=== PATIENT | female | born 1985 | race Caucasian/White ===

== ENCOUNTER 2023-10-06 06:28 | Day surgery (SDC) | payer OTHER ==
[~2023-10-06] VITALS: Ht 149.9 cm; Wt 80.4 kg
[~2023-10-06 06:28] MED LIST: BUSP10TA79 PO; OMEP20TA17 PO; PARO20TA3 PO; ceFAZolin SOD 2 GM in IV 1 EA IV ONE
[2023-10-06] MEDS ORDERED: LIDOCAINE 2% 100MG/5ML SDV (FOR ANES.) As Ordered ONE (06:50)
[2023-10-06] MEDS ORDERED: ONDANSETRON 4MG 2ML VIAL As Ordered ONE (06:50)
[2023-10-06] MEDS ORDERED: LR 1,000 ML IV SCH ×2 (06:50→08:20)
[2023-10-06] MEDS ORDERED: propofoL 200 MG/20 ML VIAL As Ordered ONE (06:50)
[2023-10-06] MEDS ORDERED: fentaNYL 100 MCG/2 ML INJECTION As Ordered ONE (06:53)
[2023-10-06] MEDS ORDERED: MIDAZOLAM INJ 2MG/2ML VIAL As Ordered ONE (06:53)
[2023-10-06] MEDS: ceFAZolin SOD 2 GM in IV 1 EA IV ONE (07:30)
[2023-10-06] MEDS ORDERED: ACETAMINOPHEN 1000MG 100ML IV BAG As Ordered ONE (07:43)
[2023-10-06] MEDS: ISOVUE-300 61% 100ML VIAL As Ordered ONE (08:00)
[2023-10-06] MEDS ORDERED: ONDANSETRON 4MG 2ML VIAL IV PRN (08:20)
[2023-10-06] MEDS ORDERED: HYDROMORPHONE HCL 0.5 MG/ 0.5 ML SYRINGE IV PRN (08:20)
[2023-10-06] MEDS ORDERED: fentaNYL 100 MCG/2 ML INJECTION IV PRN (08:20)
[2023-10-06] MEDS ORDERED: METOCLOPRAMIDE INJ 10MG/2ML VIAL IV PRN (08:20)
[2023-10-06] MEDS ORDERED: oxyCODONE 5MG TAB PO PRN (08:20)
[2023-10-06 09:15] VITALS: BP 122/80; TEMP 97.4; O2SAT 97
== END 2023-10-06 09:43 | disposition home or self-care (01) ==
LOC: M SDC 06:28
PROVIDERS: ATTEND Urology
DX: N13.2 Hydronephrosis with renal and ureteral calculous obstruction (principal); F17.210 Nicotine dependence, cigarettes, uncomplicated; K21.9 Gastro-esophageal reflux disease without esophagitis; Z79.899 Other long term (current) drug therapy